=== PATIENT | female | born 1945 | race Caucasian/White ===

== ENCOUNTER → 2017-07-14 | Outpatient (CLI) | payer MEDICARE, BC ==
[2015-06-01 07:37] VITALS: BP 142/51
[~2017-07-14] MED LIST: HYDR-971 PO
--- NOTE | 2017-07-14 15:17 | RAD ---
DATE: 07/14/2017 EXAM: MAMMO JAVIER SCREENING BILATERAL HISTORY: Routine screening COMPARISON: 07/09/2016 This study was interpreted with the benefit of Computerized Aided Detection (CAD). The breast parenchyma is heterogeneously dense, which could reduce sensitivity of mammography. Breast parenchyma level C. FINDINGS: 2-D and 3-D tomosynthesis imaging was performed in CC and MLO projections. There are coarse benign type calcifications in the right breast. No new or enlarging breast densities are seen. No suspicious microcalcifications have developed. IMPRESSION: Stable mammograms without evidence of malignancy. BI-RADS CATEGORY: 2 BENIGN FINDING(S) RECOMMENDED FOLLOW-UP: 12M 12 MONTH FOLLOW-UP PQRS compliance statement: Patient information was entered into a reminder system with a target due date for the next mammogram. Mammography is a sensitive method for finding small breast cancers, but it does not detect them all and is not a substitute for careful clinical examination. A negative mammogram does not negate a clinically suspicious finding and should not result in delay in biopsying a clinically suspicious abnormality. "Our facility is accredited by the [employer] Mammography [employer]."
== END | disposition home or self-care (01) ==
LOC: MAMMO 10:11
PROVIDERS: ATTEND Specialist
DX: Z12.31 Encounter for screening mammogram for malignant neoplasm of breast (principal)
CPT/HCPCS: 77063; 77067

== ENCOUNTER → 2018-04-04 | Outpatient (CLI) | payer MEDICARE, BC ==
[2015-06-01 07:37] VITALS: BP 142/51
[~2018-04-04] MED LIST changes: +HYDR-3165 PO; -HYDR-971 PO
--- NOTE | 2018-04-04 17:09 | RAD ---
Bone densitometry scan, 04/04/2018: HISTORY: Follow-up osteopenia The lumbar spine and right hip were examined utilizing a DEXA technique. The bone mineral density of the lumbar spine as measured from the L1-L4 levels is 0.92 g/sq cm. This yields a T score of -2.1 compatible with osteopenia. This has worsened since the 03/24/2016 exam at which time the T score was -1.6. The total T score at the right hip is -1.5 also compatible with osteopenia. This compares to a value of -1.4 on the previous study. IMPRESSION: Worsening osteopenia as described above. Electronically signed by: Domingo Lopez MD (04/04/2018 5:05 PM) [facility]
== END | disposition home or self-care (01) ==
LOC: DXRAD 09:56
PROVIDERS: ATTEND Specialist
DX: M85.89 Other specified disorders of bone density and structure, multiple sites (principal)
CPT/HCPCS: 77080

== ENCOUNTER → 2018-07-25 | Outpatient (CLI) | payer MEDICARE, BC ==
[2015-06-01 07:37] VITALS: BP 142/51
[~2018-07-25] MED LIST changes: +ACET325T9 PO; +BIFI4CAP PO; +CALC-157 PO; +CHOL100013 PO; +DIPH50CA PO; +DOCU100C28 PO; +SIMV20TA3 PO; +VIT1TABL34 PO; +VITA1CAP PO
--- NOTE | 2018-07-25 11:12 | RAD ---
DATE: 07/25/2018 EXAM: MAMMO JAVIER SCREENING BILATERAL HISTORY: Routine screening COMPARISON: 07/14/2017 This study was interpreted with the benefit of Computerized Aided Detection (CAD). Breast Density: HETERO The breast parenchyma is heterogenously dense, which could reduce sensitivity of mammography. Breast parenchyma level C. FINDINGS: 2-D and 3-D tomosynthesis imaging was performed in CC and MLO projections. No new or enlarging breast densities are seen. Benign type calcifications are again noted. No suspicious microcalcifications have developed. IMPRESSION: Stable mammograms without evidence of malignancy. BI-RADS CATEGORY: 2 BENIGN FINDING(S) RECOMMENDED FOLLOW-UP: 12M 12 MONTH FOLLOW-UP PQRS compliance statement: Patient information was entered into a reminder system with a target due date for the next mammogram. Mammography is a sensitive method for finding small breast cancers, but it does not detect them all and is not a substitute for careful clinical examination. A negative mammogram does not negate a clinically suspicious finding and should not result in delay in biopsying a clinically suspicious abnormality. "Our facility is accredited by the [employer] Mammography [employer]."
== END | disposition home or self-care (01) ==
LOC: MAMMO 10:19
PROVIDERS: ATTEND Specialist
DX: Z12.31 Encounter for screening mammogram for malignant neoplasm of breast (principal)
CPT/HCPCS: 77063; 77067

== ENCOUNTER 2018-08-07 11:28 | Inpatient (IN) | payer MEDICARE, BC ==
[~2018-08-07] VITALS: Ht 154.9 cm; Wt 49.4 kg
[~2018-08-07 11:28] MED LIST changes: -ACET325T9 PO; -BIFI4CAP PO; -CALC-157 PO; -CHOL100013 PO; -DIPH50CA PO; -DOCU100C28 PO; -SIMV20TA3 PO; -VIT1TABL34 PO; -VITA1CAP PO
[2018-08-07] MEDS ORDERED: ASPIRIN 81 MG TAB.CHEW PO ONE (12:00)
--- NOTE | 2018-08-07 12:09 | PHYS DOC ---
Past History Past Medical History: High Cholesterol, Other Past Surgical History: Hysterectomy Smoking: Non-smoker Alcohol Use: None Drug Use: None Adult General Chief Complaint Chief Complaint: DIZZY/LIGHT HEADED HPI HPI Patient is a 73-year-old female who became weak approximately 30 minutes into her usual 40 minute exercise program. She took her blood pressure after this program and noted that her systolic was in the 70s on serial testing. She also noted that she was covered in sweat which is different than her usual because she normally does not sweat much at all during these workouts. She denies any chest pain or palpitations. She noted being very lightheaded. She saw her primary care physician this morning who noted that her blood pressure was in the 90s on arrival and it improved to the 100s to 1 teens prior to discharge to come to the emergency department. Patient noted during this time that she had an area of black vision in the bottom right quadrant of her right eye visual field that has since resolved. She also noted that she was having difficulty getting words out. Her primary care physician not noticed any change in speech pattern however her did note that she was slower to get words out but there was no slurring of speech. Patient did not have any episode of arm or leg weakness. The speech difficulties have also resulted. Patient's past medical history is only significant for hyperlipidemia, she reports taking the lowest dose of simvastatin. She relates that she had a similar episode within the past month while getting physical therapy for back issues.[] Review of Systems Review of Systems Constitutional: Denies fever or chills [] Eyes: Denies change in visual acuity, redness, or eye pain [] HENT: Denies nasal congestion or sore throat [] Respiratory: Denies cough or shortness of breath [] Cardiovascular: No chest pain or palpitations[] GI: Denies abdominal pain, nausea, vomiting, bloody stools or diarrhea [] : Denies dysuria or hematuria [] Musculoskeletal: Denies back pain or joint pain [] Integument: Denies rash or skin lesions [] Neurologic: Denies headache, focal weakness or sensory changes [] Endocrine: Denies polyuria or polydipsia [] All other systems were reviewed and found to be within normal limits, except as documented in this note. Current Medications Current Medications Current Medications Medications (Trade) Dose Ordered Sig/Mingo Start Time Stop Time Status Last Admin Dose Admin Aspirin (Children'S Aspirin) 324 mg 1X ONCE 08/07/18 12:00 08/07/18 12:01 UNV Allergies Allergies Allergies Coded Allergies Type Severity Reaction Last Updated Verified No Known Drug Allergies 06/01/15 No Physical Exam Physical Exam Constitutional: Well developed, well nourished, no acute distress, non-toxic appearance. [] HENT: Normocephalic, atraumatic, bilateral external ears normal, oropharynx moist, no oral exudates, nose normal. [] Eyes: PERRLA, EOMI, conjunctiva normal, no discharge. [] Neck: Normal range of motion, no tenderness, supple, no stridor. [] Cardiovascular:Heart rate regular rhythm, no murmur [] Lungs & Thorax: Bilateral breath sounds clear to auscultation [] Abdomen: Bowel sounds normal, soft, no tenderness, no masses, no pulsatile masses. [] Skin: Warm, dry, no erythema, no rash. [] Back: No tenderness, no CVA tenderness. [] Extremities: No tenderness, no cyanosis, no clubbing, ROM intact, no edema. [] Neurologic: Alert and oriented X 3, normal motor function, normal sensory function, no focal deficits noted. [] Psychologic: Affect normal, judgement normal, mood normal. [] Current Patient Data Vital Signs Vital Signs Date Time Temp Pulse Resp B/P (MAP) Pulse Ox O2 Delivery O2 Flow Rate FiO2 08/07/18 11:40 98.4 67 22 100 Room Air EKG EKG EKG shows a sinus rhythm at 77 bpm, left or axis at -3, QTC of 407 ms, no ST elevations. Interpreted by me at 1233. Compared with EKG of 06/01/2015, no acute changes are present.[] Radiology/Procedures Radiology/Procedures CT scan of the head without contrast 08/07/2018 Clinical History: Dizziness. Difficulty speaking. Technique: Unenhanced, contiguous, 5 mm axial sections were obtained through the head. One or more of the following individualized dose reduction techniques were utilized for this study: 1. Automated exposure control. 2. Adjustment of the mA and/or kV according to patient size. 3. Use of iterative reconstruction technique. Findings: No previous imaging studies are available for comparison. There is generalized parenchymal atrophy. Areas of decreased attenuation are seen within the periventricular and subcortical white matter of both cerebral hemispheres consistent with areas of small vessel ischemic disease. No acute parenchymal abnormality is seen. No extra-axial fluid collection is noted. No skull fracture is seen. Impression: No acute intracranial abnormality is seen. PORTABLE CHEST 1V History: Dizziness Comparison: 06/16/2015 Findings: Single view of the chest is submitted. There is no infiltrate, pneumothorax, or effusion. The pericardial cardiac silhouette is within normal limits in size. Impression: 1. There is no evidence of acute cardiopulmonary disease.[] Course & Med Decision Making Course & Med Decision Making Pertinent Labs and Imaging studies reviewed. (See chart for details) ED course: Patient arrived, was placed in bed, and tolerated exam well. She was given aspirin due to concern for cardiac etiology. Her blood pressure has remained stable while in the emergency department. She was transported to and from radiology without any complications. After the return of laboratory and imaging studies, these were discussed with the patient who voiced understanding. Consultation was made with hospitalist service for admission and further evaluation. Medical decision making: Believe her neurologic symptoms were due to the relative low flow state given her low blood pressure being reported. There is no evidence of a stroke syndrome. Concerned about the etiology of this hypotension along with the diaphoresis, further differential includes but is not limited to a dysrhythmia versus of fluid and volume changes given her exercise. There is no evidence of a STEMI, there is been no dysrhythmia while in the emergency department, no evidence of an infection, and no continued hypotension. She is being admitted for further evaluation and treatment.[] Dragon Disclaimer Dragon Disclaimer This electronic medical record was generated, in whole or in part, using a voice recognition dictation system. Departure Departure: Impression: Primary Impression: Hypotension Additional Impression: Weakness Disposition: 09 ADMITTED INPATIENT Admitting Physician: Yuridia Duff Condition: IMPROVED Referrals: MINDI WATSON MD (PCP) Problem Qualifiers Primary Impression: Hypotension Hypotension type: unspecified hypotension type Qualified Codes: I95.9 - Hypotension, unspecified KATELYNFARZAD PALMER Aug 07, 2018 12:09
--- NOTE | 2018-08-07 12:45 | RAD ---
PORTABLE CHEST 1V History: Dizziness Comparison: 06/16/2015 Findings: Single view of the chest is submitted. There is no infiltrate, pneumothorax, or effusion. The pericardial cardiac silhouette is within normal limits in size. Impression: 1. There is no evidence of acute cardiopulmonary disease. Electronically signed by: Horace Villanueva MD (08/07/2018 12:43 PM) [id number]
--- NOTE | 2018-08-07 12:49 | RAD ---
CT scan of the head without contrast 08/07/2018 Clinical History: Dizziness. Difficulty speaking. Technique: Unenhanced, contiguous, 5 mm axial sections were obtained through the head. One or more of the following individualized dose reduction techniques were utilized for this study: 1. Automated exposure control. 2. Adjustment of the mA and/or kV according to patient size. 3. Use of iterative reconstruction technique. Findings: No previous imaging studies are available for comparison. There is generalized parenchymal atrophy. Areas of decreased attenuation are seen within the periventricular and subcortical white matter of both cerebral hemispheres consistent with areas of small vessel ischemic disease. No acute parenchymal abnormality is seen. No extra-axial fluid collection is noted. No skull fracture is seen. Impression: No acute intracranial abnormality is seen. Electronically signed by: Winston Crocktet MD (08/07/2018 12:47 PM) [id number]
[2018-08-07 12:56] LABS: BASO % 0 % (0-3); EOS % 0 % (0-3); HEMATOCRIT 43.4 % (36.0-47.0); HEMOGLOBIN 14.3 g/dL (12.0-15.5); LYMPH # 0.7 x10^3/uL (1.0-4.8); LYMPH % 7 % (24-48); MEAN CORPUSCULAR HEMOGLOBIN 30 pg (25-35); MEAN CORPUSCULAR HGB CONC 33 g/dL (31-37); MEAN CORPUSCULAR VOLUME 91 fL (79-100); MONO # 0.6 x10^3/uL (0.0-1.1); MONO % 6 % (0-9); NEUT # 8.3 x10^3uL (1.8-7.7); NEUT % 86 % (31-73); PLATELET COUNT 232 x10^3/uL (140-400); RED BLOOD COUNT 4.77 x10^6/uL (3.50-5.40); RED CELL DISTRIBUTION WIDTH 12.6 % (11.5-14.5); WHITE BLOOD COUNT 9.6 x10^3/uL (4.0-11.0)
[2018-08-07 13:14] LABS: ALBUMIN 3.9 g/dL (3.4-5.0); ALBUMIN/GLOBULIN RATIO 1.1 (1.0-1.7); CALCIUM 9.2 mg/dL (8.5-10.1); CREATININE 0.9 mg/dL (0.6-1.0); GFR 61.2; MAGNESIUM 2.1 mg/dL (1.8-2.4); POTASSIUM 4.5 mmol/L (3.5-5.1); TOTAL BILIRUBIN 0.6 mg/dL (0.2-1.0); TOTAL PROTEIN 7.3 g/dL (6.4-8.2)
[2018-08-07 13:41] LABS: BILIRUBIN,URINE NEG (NEG); CLARITY,URINE HAZY; COLOR,URINE YELLOW; GLUCOSE,URINE NEG (NEG)
[2018-08-07 13:42] LABS: BACTERIA,URINE FEW /HPF (0-FEW); HYALINE CASTS, URINE FEW /HPF; NITRITE,URINE NEG (NEG); SQUAMOUS EPITHELIAL CELL,UR OCC /LPF; UROBILINOGEN,URINE 0.2 mg/dL (0.2 mg/dL)
[2018-08-07] MEDS ORDERED: IV NORMAL SALINE 500ML 500 ML IV ONE (14:00)
[2018-08-07] MEDS: IV NORMAL SALINE 1,000ML 1,000 ML IV SCH (14:07)
[2018-08-07] MEDS ORDERED: ACETAMINOPHEN 325 MG TABLET PO PRN (14:15)
[2018-08-07] MEDS ORDERED: ONDANSETRON PF 4 MG/2 ML VIAL. IV PRN (14:15)
--- NOTE | 2018-08-07 18:03 | EKG ---
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
[2018-08-07 18:04] VITALS: BP 161/81
--- NOTE | 2018-08-07 18:33 | NUR ---
NSG NOTE; ADMISSION ADMIT TO ROOM 123 FROM ED AT 1745 VIA CART ACCOMP BY EMS PERSONNEL C/O DIZZINESS/WEAKNESS/DIAPHORESIS DURING AEROBIC EXERCISE WITH BP 70s/40s. PT'S DR WATSON TOLD HER TO COME TO THE ED. NO CURRENT S/S PT TO CALL FOR ASSIST W/ AMB TO [facility]
--- NOTE | 2018-08-07 18:37 | NUR ---
NSG NOTE; DR LOERA CONSULT CALLED TO ANSWERING SERVICE AT 1840
[2018-08-07] MEDS ORDERED: SIMV20TA3 PO (18:40)
[2018-08-07] MEDS ORDERED: SIMVASTATIN 20 MG TABLET PO SCH (21:00)
[2018-08-07] MEDS: SIMVASTATIN 20 MG TABLET PO SCH (21:31)
[2018-08-07 23:15] VITALS: BP 147/64
[2018-08-08] VITALS (7 sets, daily range): BP systolic 123–189; BP diastolic 64–78
[2018-08-08] MEDS: IV NORMAL SALINE 1,000ML 1,000 ML IV SCH ×2 (01:06→06:01)
[2018-08-08 05:59] LABS: BASO % 1 % (0-3); EOS # 0.1 x10^3/uL (0.0-0.7); EOS % 2 % (0-3); HEMATOCRIT 39.6 % (36.0-47.0); HEMOGLOBIN 13.1 g/dL (12.0-15.5); LYMPH # 1.5 x10^3/uL (1.0-4.8); LYMPH % 27 % (24-48); MEAN CORPUSCULAR HEMOGLOBIN 30 pg (25-35); MEAN CORPUSCULAR HGB CONC 33 g/dL (31-37); MEAN CORPUSCULAR VOLUME 91 fL (79-100); MONO # 0.5 x10^3/uL (0.0-1.1); MONO % 8 % (0-9); NEUT # 3.6 x10^3uL (1.8-7.7); NEUT % 62 % (31-73); PLATELET COUNT 220 x10^3/uL (140-400); RED BLOOD COUNT 4.33 x10^6/uL (3.50-5.40); RED CELL DISTRIBUTION WIDTH 12.9 % (11.5-14.5); WHITE BLOOD COUNT 5.7 x10^3/uL (4.0-11.0)
[2018-08-08 06:10] LABS: ALBUMIN 3.4 g/dL (3.4-5.0); CALCIUM 8.6 mg/dL (8.5-10.1); CREATININE 0.7 mg/dL (0.6-1.0); GFR 81.8; POTASSIUM 4.3 mmol/L (3.5-5.1); TOTAL BILIRUBIN 0.8 mg/dL (0.2-1.0); TOTAL PROTEIN 6.7 g/dL (6.4-8.2)
--- NOTE | 2018-08-08 08:57 | PDOC2 ---
CONSULT Date of Admission DATE: 08/08/18 TIME: 08:54 Reason for Consult: hypotension, presyncope Problem List Problems Medical Problems: (1) Hypotension Status: Acute (2) Weakness Status: Acute History of Present Illness Ms Main is a very active 73 year old female with history of hyperlipidemia and IBS. She does step aerobics every other day for years and strengthening exercises on alternate days. She reports yesterday she was finishing up her step aerobic class and doing core strengthening exercise when she began to feel lightheaded. she states she had dark spots in vision, significant diaphoresis and felt she might pass out. She lay down for a few minutes but continued to feel bad so took her blood pressure and found her systolic pressure to be in the 70s. She called her who took her to the PCP office. while in the PCP office her pressure gradually improved to systolic >100 but was admitted for evaluation and mgmt. She reports she has had one similar episode though not as severe and also during activity. She denies any syncope. She denies chest pain, dyspnea or palpitations. She denies congestive symptoms. she was noted to be mildly dehydrated on admission and given IVF. she reports feeling fine today. She does report profound fatigue and weakness during the episode yesterday and a feeling of understanding what she wanted to say but inability to articulate it. She denies any weakness one side or the other, double vision or other signs of stroke. Cardiovascular: hyperipidemia Pulmonary: No pertinent hx GI: GERD, Irritable bowel disease Heme/Onc: No pertinent hx Hepatobiliary: No pertinent hx Psych: No pertinent hx Musculoskeletal: No pertinent hx Rheumatologic: No pertinent hx Infectious disease: No pertinent hx ENT: No pertinent hx Renal/: No pertinent hx Endocrine: No pertinent hx Dermatology: No pertinent hx Past Surgical History: Appendectomy, Hysterectomy Family History cancer and hypertension, no coronary disease Social History non smoker, no illicit drugs, no significant ETOH Current Medications Current Medications Aspirin (Children'S Aspirin) 324 mg 1X ONCE PO Last administered on 08/07/18at 12:35; Start 08/07/18 at 12:00; Stop 08/07/18 at 12:09; Status DC Sodium Chloride 500 ml @ 0 mls/hr 1X ONCE IV Last administered on 08/07/18at 14: 03; Start 08/07/18 at 14:00; Stop 08/07/18 at 14:01; Status DC Ondansetron HCl (Zofran) 4 mg PRN Q4HRS PRN IV NAUSEA/VOMITING; Start 08/07/18 at 14:15; Stop 08/08/18 at 14:14 Sodium Chloride 1,000 ml @ 125 mls/hr Q8H IV Last administered on 08/08/18at 01: 06; Start 08/07/18 at 14:01; Stop 08/08/18 at 14:00 Acetaminophen (Tylenol) 650 mg PRN Q4HRS PRN PO FEVER; Start 08/07/18 at 14:15; Stop 08/08/18 at 14:14 Simvastatin (Zocor) 40 mg QHS PO ; Start 08/07/18 at 21:00; Stop 08/07/18 at 21:27 ; Status DC Simvastatin (Zocor) 20 mg QHS PO Last administered on 08/07/18at 21:31; Start 08/07/18 at 21:30 Active Scripts Active Reported Simvastatin 20 Mg Tablet 1 Tab PO QHS Allergies: Coded Allergies: hydrocodone (Verified Allergy, Unknown, 08/07/18) Review of System as per HPI General: YES: Fatigue, Malaise HEENT: YES: Visual Changes Cardiovascular: yes: Lt Headedness Gastrointestinal: YES: Nausea, Constipation Neurological: YES: Dizziness, Visual Changes, Weakness General: Alert, Oriented X3, Cooperative, No acute distress HEENT: Atraumatic, EOMI, Mucous membr. moist/pink Lungs: Clear to auscultation, Normal air movement Heart: Normal S1, Normal S2, Other (no obvious murmurs, no gallops clicks or rubs) Abdomen: Normal bowel sounds, Soft, No tenderness Extremities: No cyanosis, No edema, Normal pulses Skin: No rashes, No breakdown Neuro: Normal speech, Strength at 5/5 X4 ext, Cranial nerves 3-12 NL Psych/Mental Status: Mental status NL, Mood NL VITALS Vital Signs Date Time Temp Pulse Resp B/P (MAP) Pulse Ox O2 Delivery O2 Flow Rate FiO2 08/08/18 08:36 Room Air 08/08/18 05:39 98.0 72 18 123/69 (87) 99 Labs Laboratory Tests Test 08/07/18 12:29 08/07/18 13:10 08/07/18 17:30 08/07/18 20:00 White Blood Count 9.6 x10^3/uL (4.0-11.0) Red Blood Count 4.77 x10^6/uL (3.50-5.40) Hemoglobin 14.3 g/dL (12.0-15.5) Hematocrit 43.4 % (36.0-47.0) Mean Corpuscular Volume 91 fL (79-100) Mean Corpuscular Hemoglobin 30 pg (25-35) Mean Corpuscular Hemoglobin Concent 33 g/dL (31-37) Red Cell Distribution Width 12.6 % (11.5-14.5) Platelet Count 232 x10^3/uL (140-400) Neutrophils (%) (Auto) 86 % (31-73) Lymphocytes (%) (Auto) 7 % (24-48) Monocytes (%) (Auto) 6 % (0-9) Eosinophils (%) (Auto) 0 % (0-3) Basophils (%) (Auto) 0 % (0-3) Neutrophils # (Auto) 8.3 x10^3uL (1.8-7.7) Lymphocytes # (Auto) 0.7 x10^3/uL (1.0-4.8) Monocytes # (Auto) 0.6 x10^3/uL (0.0-1.1) Eosinophils # (Auto) 0.0 x10^3/uL (0.0-0.7) Basophils # (Auto) 0.0 x10^3/uL (0.0-0.2) Prothrombin Time 9.4 SEC (9.4-11.4) Prothromb Time International Ratio 0.9 (0.9-1.1) Sodium Level 144 mmol/L (136-145) Potassium Level 4.5 mmol/L (3.5-5.1) Chloride Level 107 mmol/L (98-107) Carbon Dioxide Level 32 mmol/L (21-32) Anion Gap 5 (6-14) Blood Urea Nitrogen 27 mg/dL (7-20) Creatinine 0.9 mg/dL (0.6-1.0) Estimated GFR (Cockcroft-Gault) 61.2 BUN/Creatinine Ratio 30 (6-20) Glucose Level 95 mg/dL (70-99) Calcium Level 9.2 mg/dL (8.5-10.1) Magnesium Level 2.1 mg/dL (1.8-2.4) Total Bilirubin 0.6 mg/dL (0.2-1.0) Aspartate Amino Transf (AST/SGOT) 24 U/L (15-37) Alanine Aminotransferase (ALT/SGPT) 24 U/L (14-59) Alkaline Phosphatase 92 U/L (46-116) Troponin I Quantitative < 0.017 ng/mL (0-0.055) < 0.017 ng/mL (0-0.055) < 0.017 ng/mL (0-0.055) HC-Lrj-Y-Type Natriuretic Peptide 124 pg/mL (0-124) Total Protein 7.3 g/dL (6.4-8.2) Albumin 3.9 g/dL (3.4-5.0) Albumin/Globulin Ratio 1.1 (1.0-1.7) Urine Collection Type Unknown Urine Color Yellow Urine Clarity Hazy Urine pH 6.5 Urine Specific [place] 1.020 Urine Protein Trace (NEG-TRACE) Urine Glucose (UA) Neg mg/dL (NEG) Urine Ketones (Stick) Neg mg/dL (NEG) Urine Blood Neg (NEG) Urine Nitrite Neg (NEG) Urine Bilirubin Neg (NEG) Urine Urobilinogen Dipstick 0.2 mg/dL (0.2 mg/dL) Urine Leukocyte Esterase Neg (NEG) Urine RBC 1-2 /HPF (0-2) Urine WBC 1-4 /HPF (0-4) Urine Squamous Epithelial Cells Occ /LPF Urine Bacteria Few /HPF (0-FEW) Urine Hyaline Casts Few /HPF Urine Mucus Slight /LPF Test 08/08/18 05:47 White Blood Count 5.7 x10^3/uL (4.0-11.0) Red Blood Count 4.33 x10^6/uL (3.50-5.40) Hemoglobin 13.1 g/dL (12.0-15.5) Hematocrit 39.6 % (36.0-47.0) Mean Corpuscular Volume 91 fL (79-100) Mean Corpuscular Hemoglobin 30 pg (25-35) Mean Corpuscular Hemoglobin Concent 33 g/dL (31-37) Red Cell Distribution Width 12.9 % (11.5-14.5) Platelet Count 220 x10^3/uL (140-400) Neutrophils (%) (Auto) 62 % (31-73) Lymphocytes (%) (Auto) 27 % (24-48) Monocytes (%) (Auto) 8 % (0-9) Eosinophils (%) (Auto) 2 % (0-3) Basophils (%) (Auto) 1 % (0-3) Neutrophils # (Auto) 3.6 x10^3uL (1.8-7.7) Lymphocytes # (Auto) 1.5 x10^3/uL (1.0-4.8) Monocytes # (Auto) 0.5 x10^3/uL (0.0-1.1) Eosinophils # (Auto) 0.1 x10^3/uL (0.0-0.7) Basophils # (Auto) 0.0 x10^3/uL (0.0-0.2) Sodium Level 143 mmol/L (136-145) Potassium Level 4.3 mmol/L (3.5-5.1) Chloride Level 109 mmol/L (98-107) Carbon Dioxide Level 28 mmol/L (21-32) Anion Gap 6 (6-14) Blood Urea Nitrogen 16 mg/dL (7-20) Creatinine 0.7 mg/dL (0.6-1.0) Estimated GFR (Cockcroft-Gault) 81.8 BUN/Creatinine Ratio 23 (6-20) Glucose Level 87 mg/dL (70-99) Calcium Level 8.6 mg/dL (8.5-10.1) Total Bilirubin 0.8 mg/dL (0.2-1.0) Aspartate Amino Transf (AST/SGOT) 27 U/L (15-37) Alanine Aminotransferase (ALT/SGPT) 20 U/L (14-59) Alkaline Phosphatase 78 U/L (46-116) Total Protein 6.7 g/dL (6.4-8.2) Albumin 3.4 g/dL (3.4-5.0) Albumin/Globulin Ratio 1.0 (1.0-1.7) Images Head CT - Impression: No acute intracranial abnormality is seen. CXR - 1. There is no evidence of acute cardiopulmonary disease. EKG - sinus rhythm, leftward axis, no acute ischemic changes Assessment/Plan 1. Near syncope in the setting of prerenal azotemia and hypotension - renal function normalized, no new symptoms, check orthostatic pressures. Suggest JAN hose when out of bed, check echo and if no significant abn, home with MCT and schedule for outpatient MPI. 2. Hypotension - resolved with IVF. check orthostatics 3. pre renal azotemia - resolved with IVF 4. dyslipidemia - check lipids, continue home medication Will check echo for any significant abn. Check orthostatics and if normal plan for home with MCT and plan for outpatient MPI. FEMI MON TRADEMARK AFFIXER Aug 08, 2018 08:57
--- NOTE | 2018-08-08 11:28 | CARD ---
MR#: [id number] Date of Study: 08/08/2018 Ordering Physician: FEMI MON, Referring Physician: KEE MATTA Tech: Iona Arauz [facility] APPROVED REPORT EXAM: Two-dimensional and M-mode echocardiogram with Doppler and color Doppler. Other Information Quality : AverageHR: 70bpm Rhythm : NSR INDICATION Hypotension 2D DIMENSIONS Left Atrium(2D)3.4 (1.6-4.0cm)IVSd1.1 (0.7-1.1cm) Aortic Root(2D)2.6 (2.0-3.7cm)LVDd3.8 (3.9-5.9cm) LVOT Diameter2.0 (1.8-2.4cm)PWd0.9 (0.7-1.1cm) LVDs2.0 (2.5-4.0cm)FS (%) 47.2 % SV49.6 mlLVEF(%)79.3 (>50%) Aortic Valve AoV Peak Maldonado.145.6cm/sAoV VTI30.9cm AO Peak GR.8.5mmHgLVOT Peak Maldonado.97.5cm/s LVOT VTI 21.13cmAO Mean GR.4mmHg CHARI (VMAX)2.35vg8LLQ (VTI)2.10cm2 Mitral Valve MV E Fjbkxuat19.9cm/sMV DECEL HSPG708au MV A Mvurwgez042.7cm/sE/A Ratio0.7 MV A Zdxxvqks46ux Pulmonary Valve PV Peak Fyohpclt34.7cm/sPV Peak Grad.4mmHg Tricuspid Valve TR P. Dhuffrln296hw/sRAP NLDAQVEV4dyNq TR Peak Gr.36kqXlNVPW32cbCz LEFT VENTRICLE The left ventricle is normal size. Proximal septal thickening is noted. The left ventricle systolic f unction is normal. The Ejection Fraction is 70%. There is normal LV segmental wall motion. Transmitra l Doppler flow pattern is Grade I-abnormal relaxation pattern. RIGHT VENTRICLE The right ventricle is normal size. There is normal right ventricular wall thickness. The right ventr icular systolic function is normal. ATRIA The left atrium size is normal. The right atrium size is normal. The interatrial septum is intact wit h no evidence for an atrial septal defect or patent foramen ovale as noted on 2-D or Doppler imaging. AORTIC VALVE The aortic valve is probably trileaflet. Doppler and Color Flow revealed no significant aortic regurg itation. There is no significant aortic valvular stenosis. MITRAL VALVE The mitral valve is normal in structure and function. There is no evidence of mitral valve prolapse. There is no mitral valve stenosis. Doppler and Color-flow revealed trace mitral regurgitation. TRICUSPID VALVE The tricuspid valve is normal in structure and function. Doppler and Color Flow revealed trace tricus pid regurgitation. The PA pressure was estimated at 21 mmHg. There is no tricuspid valve prolapse or vegetation. There is no tricuspid valve stenosis. PULMONIC VALVE The pulmonic valve is not well visualized. Doppler and Color Flow revealed no pulmonic valvular regur gitation. There is no pulmonic valvular stenosis. GREAT VESSELS The aortic root is normal in size. The ascending aorta is normal in size. The IVC is normal in size a nd collapses >50% with inspiration. PERICARDIAL EFFUSION There is no evidence of significant pericardial effusion. Critical Notification Critical Value: No <Conclusion> The left ventricle systolic function is normal. The Ejection Fraction is 70%. There is normal LV segmental wall motion. Transmitral Doppler flow pattern is Grade I-abnormal relaxation pattern. Trace mitral regurgitation. Trace tricuspid regurgitation. The PA pressure was estimated at 21 mmHg. There is no evidence of significant pericardial effusion. Signed by : Delio Smart, Electronically Approved : 08/08/2018 11:28:06
--- NOTE | 2018-08-08 14:09 | HP ---
ADMIT DATE: 08/07/2018 HISTORY OF PRESENT ILLNESS: The patient is a 73-year-old female patient who came to the Emergency Room as she developed weakness approximately 30 minutes into her usual 40 minutes exercise program. She took her blood pressure after this program and noted that her blood pressure was in the 70s with serial testing. She also notes that she was covered in sweat, which is different than her usual because she normally does not sweat much at all during these exercises; however, she denied any chest pain, denied any palpitation. She noted that being very lightheaded. She saw her primary care physician who noted that her blood pressure was in the 90s on arrival. It has improved to 100-110s prior to discharge, come to the Emergency Room. She noted during this time that she had an area of black vision in the bottom right quadrant of her right eye visual field, it has since resolved. She also noted that she is having difficulty getting words out. Her primary care physician did not notice any change in this patient's speech pattern; however, her did note that she was slower to get words out, but there was no slurring of speech. She denied any weakness in her arms or legs. The speech difficulties have also resolved. She was evaluated in the Emergency Room and apparently has had a CT scan of the head, which showed no intracranial abnormalities seen. Her first set of cardiac enzyme was less than 0.017. The patient was admitted to do 2 more sets of cardiac enzyme and to consult the cardiology and perhaps also neurologist. PAST MEDICAL HISTORY: Significant for hyperlipidemia, gastroesophageal reflux disease, irritable bowel syndrome. PAST SURGICAL HISTORY: Significant for appendectomy and hysterectomy. FAMILY HISTORY: Positive for cancer and hypertension. SOCIAL HISTORY: She is . Does not smoke, drink alcohol, or use recreational drugs. ALLERGIES: She is allergic to HYDROCODONE. MEDICATIONS: She is currently on following medications: She is on simvastatin 20 mg tablet at bedtime. REVIEW OF SYSTEMS: As per history of present illness. PHYSICAL EXAMINATION: GENERAL: On arrival to the hospital yesterday in the Emergency Room, she looked well and was clearly in no apparent respiratory distress. No pallor, jaundice, cyanosis, or thyromegaly. No jugular venous distension. No limb edema. VITAL SIGNS: Her heart rate was 67, blood pressure 132/73, temperature was 98.4, respiratory rate was 22, and oxygen saturation was 100% on room air. HEAD, EYES, EARS, NOSE, AND THROAT: Showed normocephalic, atraumatic. NECK: Supple. HEART: Showed normal first and second heart sounds. No gallop, rub, or murmur. CHEST: Clear to auscultation. No crepitation or rhonchi. ABDOMEN: Distended, soft, nontender. NEUROLOGIC: She was awake, alert, responding appropriately. All cranial nerves intact. She moves extremities without difficulty. She ambulates without assistance or assistive devices. LABORATORY DATA: Showed a white cell count of 9600, hemoglobin 14, hematocrit 43, MCV 91, and a platelet count 232,000 with normal manual differential. Her chemistry showed a serum sodium 144, potassium 4.5, chloride 107, bicarbonate 32, anion gap of 5, BUN 27, creatinine 0.9, estimated GFR was 61 mL per minute. Her glucose was 95. Her calcium was 9.2, magnesium 2.1. Total bilirubin, AST, ALT, alkaline phosphatase were normal. Total protein was 7.3, albumin 3.9. Her first set of troponin was less than 0.017. Her prothrombin time was 9.4, INR was 0.9. Her urinalysis showed the urine was yellow, hazy with a pH of 6.5, specific gravity of 1.010. There was a trace of protein. The urine was negative for glucose, ketones, blood, nitrite and leukocyte esterase. There was 1-2 rbc's, 1-4 wbc's, and very occasionally squamous epithelial cells, but very few bacteria. Her chest x-ray showed that there is no infiltrate, pneumothorax, or effusion. The pericardial cardiac silhouette is within normal limits in size and her CT scan of the head showed there is generalized parenchymal atrophy, areas of decreased attenuation are seen within the periventricular subcortical white matter of both cerebral hemispheres, consistent with small vessel ischemic disease, no acute parenchymal abnormality seen. No extraaxial fluid collection is noted. No skull fracture is seen. IMPRESSION AND PLAN: In summary, this is a 73-year-old female patient who basically developed an episode of hypotension while exercising her usual and daily exercises and she felt dizzy and became diaphoretic, something she does not normally experience in her this kind of exercises. She went to her doctor where her initial blood pressure measurement was 90s and has improved slowly before she came to the Emergency Room. The patient was admitted and initial investigation were unremarkable, particularly her blood pressure has normalized and her first set of cardiac enzyme was negative. Chest x-ray and CT scan were all unremarkable. We will admit the patient and do 2 more sets of cardiac enzyme and consult the polisher and sander and decide on further management accordingly. KEE MATTA MD DR: EZEQUIEL/mikayla JOB#: [id number] / [id number]
[2018-08-08] MEDS: amLODIPine BESYLATE 5 MG TABLET PO SCH (18:17)
[2018-08-08] MEDS ORDERED: CALC-157 PO (18:24)
[2018-08-08] MEDS ORDERED: VIT1TABL34 PO (18:24)
[2018-08-08] MEDS ORDERED: DIPH50CA PO (18:24)
[2018-08-08] MEDS ORDERED: DOCU100C28 PO (18:24)
[2018-08-08] MEDS ORDERED: CHOL100013 PO (18:24)
[2018-08-08] MEDS ORDERED: VITA1CAP PO (18:24)
[2018-08-08] MEDS ORDERED: ACET325T9 PO (18:24)
[2018-08-08] MEDS ORDERED: BIFI4CAP PO (18:24)
--- NOTE | 2018-08-08 20:07 | PN ---
DATE: 08/08/2018 SUBJECTIVE: The patient is resting, sitting up, and in no apparent respiratory distress. She was concerned as her blood pressure measurement today when checking her orthostatics was extremely high. No evidence of postural hypertension, but both blood pressures lying, sitting, and standing are 180 to 190 systolic. Denied again any chest pain, denied any shortness of breath. OBJECTIVE: GENERAL: On examining her, she looked well and was clearly in no apparent respiratory distress. No pallor, jaundice, cyanosis, or thyromegaly. No jugular venous distension. No limb edema. VITAL SIGNS: Her heart rate was 70, blood pressure was 132/69, temperature was 97.9, respiratory rate was 18 and oxygen saturation was 96%. The rest of the clinical examination was stable. Her intake was 2000, no output was recorded. LABORATORY DATA: Her lab work showed a serum sodium 143, potassium 4.3, chloride 109, bicarbonate 28, anion gap of 6, BUN 16, creatinine 0.7, estimated GFR was 82 mL per minute. Her glucose was 87, calcium was 8.6. Total bilirubin, AST, ALT, and alkaline phosphatase were normal. Her white cell count was 5700, hemoglobin 13, hematocrit 39, MCV 91, and platelet count 220,000. ASSESSMENT: 1. Near syncope. The patient was, at least when she arrived here, dehydrated, her BUN is disproportionately high to convert to creatinine. 2. Hypotension has resolved and prerenal azotemia has resolved. 3. Dyslipidemia for which she is actually on a statin. PLAN: I will arrange for her to have bilateral carotid Doppler ultrasounds and we will decide on further management accordingly. KEE MATTA MD DR: EZEQUIEL/mikayla JOB#: [id number] / [id number]
[2018-08-08] MEDS: SIMVASTATIN 20 MG TABLET PO SCH (20:51)
[2018-08-09 00:11] VITALS: BP 166/71
[2018-08-09 06:14] VITALS: BP 141/72
--- NOTE | 2018-08-09 08:59 | RAD ---
Exam : Carotid Duplex with Grayscale Ultrasound and Spectral and Color Doppler Analysis 08/09/2018 8:54 AM Clinical Indications: Near syncope Comparison study: None available PQRS Compliance Statement - Stenosis calculations for CT, MR and conventional angiography are based upon measurement of the distal ICA diameter in accordance with the NASCET methodology. Stenosis calculations for carotid ultrasound studies are derived from validated velocity criteria which are known to correlate with the NASCET methodology. Findings: The common, internal and external carotid arteries were examined by grayscale, color and spectral Doppler ultrasound. Very mild diffuse atherosclerotic vascular disease is seen, predominantly mild intimal thickening. No high-grade visual stenosis is seen on color Doppler imaging. The following are the velocities and ratios in the carotid arteries on both sides: RIGHT ICA PV: 101cm/sec RIGHT CCA PV: 60cm/sec RIGHT ICA ED: 31cm/sec RIGHT IC/CCPV: Less than 2 RIGHT VERTEBRAL: antegrade flow LEFT ICA PV: 91cm/sec LEFT CCA PV: 58cm/sec LEFT ICA ED: 28cm/sec LEFT IC/CCPV: Less than 2 LEFT VERTEBRAL: antegrade flow <50% ICA Stenosis: PSV < 125cm/s (EDV < 40cm/s; SVR < 2.0) 50-69% ICA Stenosis: PSV < 125-229cm/s (EDV 40-99cm/s; SVR 2.0-3.9) >70% ICA Stenosis: PSV > 230cm/s (EDV >100cm/s; SVR >4.0) Impression: Mild atherosclerotic vascular disease with less than 50 % stenosis of the bilateral internal carotid arteries by ultrasound criterion Electronically signed by: Jonathan Hancock MD (08/09/2018 8:56 AM) [id number]
[2018-08-09 11:08] VITALS: BP 160/74
[2018-08-09 13:08] VITALS: BP 165/84
[2018-08-09] MEDS: amLODIPine BESYLATE 5 MG TABLET PO SCH (13:08)
--- NOTE | 2018-08-09 14:58 | RAD ---
RENAL DUPLEX SONOGRAPHY Clinical indications: Malignant hypertension. Renal artery stenosis. Evaluation for renal scarring/atrophy. FINDINGS: The longitudinal and AP and transverse dimensions of the right kidney are 8.8 cm and 4.4 cm and 5.1 cm respectively. The longitudinal and AP and transverse dimensions of the left kidney are 10.4 cm and 4.8 cm and 4.3 cm respectively. There is mild left-sided hydronephrosis. No renal mass is seen on either side. The urinary bladder is mildly distended. No intraluminal echodensities or masses are seen. Duplex sonography including archer scale and color flow and spectral waveform analysis of the renal arteries and veins was performed. The peak systolic flow velocity of the right main renal artery is: Proximal: 77cm/sec Mid aspect: 139 cm/sec Distal: 113 cm/sec The peak systolic flow velocity of the left main renal artery is: Proximal: 94 cm/sec Midaspect: Not visualized due to overlying bowel gas. Distal: 81 cm/sec The peak systolic flow velocity of the abdominal aorta is 98 cm/sec. Therefore, the renal artery/aortic ratio on the right side is 1.4. Therefore, the renal artery/aortic ratio on the left side is 0.96. Color-Doppler flow is identified within the right main renal vein. Color-Doppler flow is identified within the left main renal vein. No abdominal aortic aneurysm is seen. The average resistive index of the right kidney is 0.75. The average resistive index of the left kidney is 0.72. IMPRESSION: 1.No hemodynamically significant plaque formation or flow-limiting stenosis is seen within either the left or right main renal arteries. 2. Mild left-sided hydronephrosis. Electronically signed by: Massimo Sun MD (08/09/2018 2:55 PM) [place] [id number]
--- NOTE | 2018-08-09 15:36 | NUR ---
NURSING NOTE DISCHARGE PT DISCHARGED TO HOME ACCOMPANIED BY AT 1535 VIA AMBULATION. WRITTEN AND VERBAL DISCHARGE INSTRUCTIONS GIVEN TO PT. SCRIPT FOR AMLODIPINE CALLED IN TO [facility]. PT INSTRUCTED TO FOLLOW UP WITH PCP AND CARDIOLOGY. NO COMPLICATIONS JULIEN AVALOS.
--- NOTE | 2018-09-07 12:08 | DS ---
DATE OF DISCHARGE: 08/09/2018 HISTORY OF PRESENT ILLNESS: The patient is a 73-year-old female patient who came to the Emergency Room as she developed weakness approximately 30 minutes into her usual 40 minutes' exercise program. She took her blood pressure after this program and noted that her pressure was down to 70s with serial testing. She also noted that she was covered in sweat, which is different from her usual because she normally does not sweat much at all during her exercises; however, she denied any chest pain, denied any palpitation, denied being very lightheaded. She saw her primary care physician who noted that her blood pressure was in the 90s that has improved to 110 prior to discharge and she came to the Emergency Room where she has had difficulty getting words out. Her primary care physician did not notice any change in this patient's speech pattern; however, her did note that she was slower to get words out and there was no slurring of speech. She denied any weakness in her arms or legs. The speech difficulty had also resolved. She was evaluated in the Emergency Room and apparently has had a CT scan of the head, which showed no intracranial abnormalities. Her first set of cardiac enzyme was less than 0.017. She was admitted to do 2 more sets of cardiac enzyme and to consult the cardiology perhaps also neurologist. She was seen by the bean picker machine operator and she had 3 sets of cardiac enzymes that ruled out myocardial infarction. She has had an echocardiogram done, which showed that her left ventricular systolic function is normal, ejection fraction is 70%. She has normal left ventricular segmental wall motion and transmitral Doppler flow pattern is grade 1 abnormal relaxation pattern. She has trace mitral regurgitation, trace to mild tricuspid regurgitation. Her pulmonary artery pressure was estimated at 21 mmHg. She was seen in consultation also. Her lab work on arrival showed that she was dehydrated. She was treated with IV antibiotics. She has had bilateral carotid Doppler study as well as renal artery duplex and no abnormality was detected, and therefore, the patient was discharged home. In fact, her blood pressure was high, and therefore, she was discharged to follow with her primary care physician. PHYSICAL EXAMINATION: GENERAL: When I examined her on the day of discharge, she looked well and was clearly in no apparent respiratory distress. VITAL SIGNS: Her heart rate was 70, blood pressure was 132/69, temperature was 97.9, respiratory rate was 18 and oxygen saturation was 96%. Her clinical exam is stable. LABORATORY DATA: Her lab work prior to discharge showed her serum sodium was 143, potassium 4.3, chloride 109, bicarbonate 28, anion gap of 6, BUN 16, creatinine 0.7, estimated GFR was 81 mL per minute. Her glucose was 87, calcium was 8.6. Total bilirubin, AST, ALT, alkaline phosphatase were normal. Total protein was 6.7, albumin 3.4. Her white cell count was 5700, hemoglobin 13, hematocrit 39, MCV 91, and platelet count 220,000. DISCHARGE MEDICATIONS: She was discharged home to continue on her Colace 200 mg twice a day, simvastatin 20 mg at bedtime, acetaminophen 650 mg at bedtime, calcium carbonate with vitamin D one tablet twice a day, cholecalciferol 1000 International Unit once a day, diphenhydramine 25 mg at bedtime, and PreserVision AREDS tablet 1 tablet once a day. FINAL DISCHARGE DIAGNOSES: 1. Near syncope. The patient was at least when she arrived dehydrated with disproportionately high BUN compared to creatinine. 2. Hypertension that is resolved. 3. Dyslipidemia. KEE MATTA MD DR: EZEQUIEL/mikayla JOB#: [id number] / [id number]
== END 2018-08-09 15:35 | disposition home or self-care (01) | DRG 641 ==
LOC: ER 11:28 → 1 SOUTH 13:59
PROVIDERS: ADMIT Internal Medicine; ATTEND Internal Medicine
DX: E86.0 Dehydration (principal); I95.9 Hypotension, unspecified; E78.00 Pure hypercholesterolemia, unspecified; E78.5 Hyperlipidemia, unspecified; K21.9 Gastro-esophageal reflux disease without esophagitis; K58.9 Irritable bowel syndrome, unspecified; Z82.49 Family history of ischemic heart disease and other diseases of the circulatory system; Z90.710 Acquired absence of both cervix and uterus; Z88.5 Allergy status to narcotic agent
CPT/HCPCS: 36415; 70450; 71045; 76770; 80053; 81001; 83735; 83880; 84443; 84484; 85025; 85610; 93005; 93306; 93880; J7040; J7030

== ENCOUNTER → 2018-08-17 | Outpatient (CLI) | payer MEDICARE, BC ==
[2018-08-09 13:08] VITALS: BP 165/84
[~2018-08-17] MED LIST changes: +ACET325T9 PO; +BIFI4CAP PO; +CALC-157 PO; +CHOL100013 PO; +DIPH50CA PO; +DOCU100C28 PO; +SIMV20TA3 PO; +VIT1TABL34 PO; +VITA1CAP PO
--- NOTE | 2018-08-17 13:21 | RAD ---
MR#: [id number] Date of Study: 08/17/2018 Ordering Physician: PAT LOERA, Referring Physician: TATUM OLIVER Tech: KRISTI Ch ARRT (R) (N) APPROVED REPORT Test Type: Exercise Stress Nurse/Tech: WILLIAM English Test Indications: near syncope Cardiac History: High cholesterol Medications: See Electronic Medical Record Medical History: See Electronic Medical Record Resting ECG: SR, NO ACUTE CHANGES Resting Heart Rate: 69 bpm Resting Blood Pressure: 199/83mmHg Pretest Chest Pain: None Nurse/Tech Notes Consent: The procedure was explained to the patient in lay terms. Informed consent was witnessed. Mor eout was entered into [email or web address]. History and Stress Test performed by KRISTI Ch ARRT (R) (N) Stress Symptoms Dyspnea,Fatigue POST EXERCISE Reason for Termination: Fatigue , Reached target heart rate Target HR: Yes Max HR: 144 bpm 116% of Maximum Predicted HR: 124 bpm Exercise duration: 7:54 min:sec, 3 Stage Exercise capacity: 10METs Max Blood Pressure: 198/60mmHg Blood Pressure response to exercise: Abnormal increase in blood pressure during stress. Chest Pain: No. Arrhythmia: No. ST Change: Yes. depression w/upsloping @ peak INTERPRETATION Stress EKG Conclusion: Baseline EKG showed sinus rhythm. No ischemic changes at peak stress. No arr hythmias. Imaging Protocol IMAGE PROTOCOL: Rest Tc-99m/stress Tc-99m 1 day Rest: Stress: Viability: Radiopharm.Tc99m PbkshbympPu88u Sestamibi Nkdl68xLv 34mCi Img Date 08/17/2018 08/17/2018 Inj-Img Wpzr51evs. 60min. Rest Admin Site:IV - Left AntecubitalAdministrator: KRISTI Ch ARRT (R)(N) Stress Admin Site: IV - Left AntecubitalAdministrator: KRISTI Ch ARRT (R)(N) STRESS DATA End Diast. Vol.49.0mlAv. Heart Rate79.0bpm LVEDV index BSA1.0mlCardiac Output0.1L/min End Syst. Vol.3.0mlCO Index BSA3.6L/min LVESV index BSA0.0mlMyocardial Mass95.0g Eject. Swacixbg08.0% Stress Rates Pk. Fill Rate4.51EDV/secLVtime Pk. Fill 140.29msec Pk. Empty Rate5.97ESV/secLVtime Pk. Piuej479.95msec 1/3 Pk. Fill2.38EDV/sec Stress Scores Regional WT0.00Summed WT0.00 Regional WM0.00Summed WM0.00 Study quality was good. Left Ventricular size was Normal at Rest and Stress. Lung uptake was . Left Ventricular ejection fraction is >80%. The rest and stress images show normal perfusion, normal contraction and thickening. LV Perf. Quant 17 Seg. SSS0.00 17 Seg. SRS2.00 17 Seg. SDS0.00 Stress Defect Extent (% LAD)0.00Rest Defect Extent (% LAD)5.60Rev. Defect Extent (% LAD)0.00 Stress Defect Extent (% LCX) 0.00Rest Defect Extent (% LCX)0.00Rev. Defect Extent (% LCX)0.00 Stress Defect Extent (% RCA)0.00Rest Defect Extent (% RCA)0.00Rev. Defect Extent (% RCA)0.00 Stress Defect Extent (% LUIS DANIEL)0.00Rest Defect Extent (% LUIS DANIEL)2.20Rev. Defect Extent (% LUIS DANIEL)0.00 Conclusion 1. Treadmill exercise cardioisotope stress test did not show any evidence of ischemia or infarct. 2. Normal left ventricular systolic function with ejection fraction calculated at >80%. 3. Low risk for cardiac events. Signed by : Pat Loera, Electronically Approved : 08/17/2018 13:21:37
== END | disposition home or self-care (01) ==
LOC: NM 07:58
PROVIDERS: ATTEND Internal Medicine Cardiovascular Disease
DX: R55 Syncope and collapse (principal); E78.00 Pure hypercholesterolemia, unspecified
CPT/HCPCS: 78452; 93017; A9500; 96375; 96376

== ENCOUNTER → 2018-08-29 | Outpatient (CLI) | payer MEDICARE, BC ==
[2018-08-09 13:08] VITALS: BP 165/84
[~2018-08-29] MED LIST changes: +FUROSEMIDE 40 MG/4 ML VIAL IVP ONE
--- NOTE | 2018-08-29 13:04 | RAD ---
Radionuclide renal scan with Lasix, 08/29/2018: HISTORY: Hydronephrosis Imaging was performed following IV injection of 11.0 mCi of technetium 99m MAG3. 40 mg of Lasix was administered IV approximately 20 minutes into the exam. The dynamic flow study demonstrates prompt symmetric perfusion of both kidneys. There is prompt uptake of the radionuclide by both kidneys with time to peak activity in both kidneys at approximately 2 minutes. There is good clearance of activity from the renal parenchyma and the renal collecting systems without evidence of significant obstruction. Normal bladder uptake is seen. IMPRESSION: Normal radionuclide renal scan. Electronically signed by: Domingo Lopez MD (08/29/2018 1:01 PM) [facility]
== END | disposition home or self-care (01) ==
LOC: NM 07:50
PROVIDERS: ATTEND Family Medicine
DX: N13.39 Other hydronephrosis (principal)
CPT/HCPCS: 78708; 96374; 96375; A9562; J1940

== ENCOUNTER → 2019-09-17 | Outpatient (CLI) | payer MEDICARE, BC ==
[~2019-09-17] MED LIST changes: +CEPH-264 PO; +CHOL400T36 PO; +CITA20TA6 PO; +CRAN250C PO; -FUROSEMIDE 40 MG/4 ML VIAL IVP ONE; +MELA5TAB20 PO; +SIMV20TA18 PO; -SIMV20TA3 PO; +VIT1CAPS12 PO; +VITA1TAB19 PO
--- NOTE | 2019-09-18 08:13 | RAD ---
Bilateral digital screening mammograms and tomosynthesis Reason for examination: Routine screening. Comparison is made to previous study dated July 14, 2017 and priors Routine CC and MLO digital views obtained. Interpretation was made with the benefit of CAD. The skin and nipples show no abnormalities. No abnormal axillary lymph nodes are seen. The breast parenchyma is heterogeneously dense. (Breast density: Category C.) There are no suspicious masses, suspicious calcifications or architectural distortion. Benign calcifications. Small intramammary lymph node of the left upper outer breast. Impression: Negative mammogram. Recommend routine screening. ?Your patient's mammogram demonstrates that she has dense breast tissue (breast density category C or D), which could hide abnormalities, and if she has other risk factors for breast cancer that have been identified, she might benefit from supplemental screening tests that may be suggested by you as her ordering physician. Dense breast tissue, in and of itself, is a relatively common condition. Therefore, this information is not provided to cause undue concern, but rather to raise your awareness and to promote discussion with your patient regarding the presence of other risk factors, in addition to dense breast tissue. Your patient's mammography results will be sent to her. BI-RAD Category 2: Benign. "Our facility is accredited by the [employer] Mammography Program." This patient's information has been entered into a reminder system for the patient to be notified with the results of her examination and a target date for the next mammogram. Electronically signed by: Jarod Bustamante MD (09/18/2019 8:09 AM) [id number]
== END | disposition home or self-care (01) ==
LOC: MAMMO 09:58
PROVIDERS: ATTEND Specialist
DX: Z12.31 Encounter for screening mammogram for malignant neoplasm of breast (principal)
CPT/HCPCS: 77063; 77067

== ENCOUNTER 2019-11-12 08:38 | Emergency (ER) | payer MEDICARE, BC ==
[~2019-11-12] VITALS: Ht 152.4 cm; Wt 52.3 kg
[~2019-11-12 08:38] MED LIST changes: -CEPH-264 PO; -CHOL400T36 PO; -CITA20TA6 PO; -CRAN250C PO; -MELA5TAB20 PO; -VIT1CAPS12 PO; -VITA1TAB19 PO
[2019-11-12] MEDS ORDERED: TETANUS AND DIPHTHERIA TOX/PF 0.5 ML VIAL. VAX IM ONE (09:00)
[2019-11-12] MEDS ORDERED: CEPHALEXIN 250 MG CAPSULE PO ONE (09:00)
--- NOTE | 2019-11-12 09:08 | RAD ---
Three views Left finger: Clinical History: Amputated tip of index finger. Technique: AP view of the hand, as well as lateral and oblique collimated views of the second finger were obtained. Comparison: None. Findings: There is amputation of the distal left index finger which includes the tip of the tuft. There is no radiopaque foreign body. The remaining visualized osseous structures appear normal. Impression: Amputation of the tip of the index finger includes the very tip of the tuft. Electronically signed by: Lukasz Jay III, MD (11/12/2019 9:05 AM) [id number]
--- NOTE | 2019-11-12 09:13 | PHYS DOC ---
Past History Past Medical History: Anxiety Past Surgical History: Hysterectomy Smoking: Non-smoker Alcohol Use: Rarely Drug Use: None General Adult EDM: Chief Complaint: FINGER INJURY HPI: HPI: Patient is a 74 year old female who presents for amputation of the very tip of her left index finger. She cut it with electric ena just prior to arrival. She was able to bring in the tip which is only 3 to 4 mm thick. There was injury to the nailbed as well. No other injuries reported. Tetanus is not up-to-date. Bleeding controlled prior to arrival. The nail is missing Review of Systems: Review of Systems: Constitutional: Denies fever or chills Eyes: Denies change in visual acuity HENT: Denies nasal congestion or sore throat Respiratory: Denies cough or shortness of breath Cardiovascular: Denies chest pain or edema GI: Denies abdominal pain, nausea, vomiting, bloody stools or diarrhea : Denies dysuria Musculoskeletal: Denies back pain or joint pain Integument: Denies rash Neurologic: Denies headache, focal weakness or sensory changes Endocrine: Denies polyuria or polydipsia Lymphatic: Denies swollen glands Psychiatric: Denies depression or anxiety Heart Score: Risk Factors: Risk Factors: DM, Current or recent (<one month) smoker, HTN, HLP, family history of CAD, obesity. Risk Scores: Score 0 - 3: 2.5% MACE over next 6 weeks - Discharge Home Score 4 - 6: 20.3% MACE over next 6 weeks - Admit for Clinical Observation Score 7 - 10: 72.7% MACE over next 6 weeks - Early Invasive Strategies Current Medications: Current Meds: Current Medications Medications (Trade) Dose Ordered Sig/Mingo Start Time Stop Time Status Last Admin Dose Admin Cephalexin HCl (Keflex) 500 mg 1X ONCE 11/12/19 09:00 11/12/19 09:01 DC Tetanus/ Diphtheria Toxoids Adsorbed (Tenivac Vial) 0.5 ml ONCE ONCE 11/12/19 09:00 11/12/19 09:01 DC Allergies: Allergies: Allergies Coded Allergies Type Severity Reaction Last Updated Verified No Known Drug Allergies 11/12/19 No Physical Exam: PE: Constitutional: Well developed, well nourished, mild acute distress, non-toxic appearance. [] HENT: Normocephalic, atraumatic, bilateral external ears normal, oropharynx moist, nose normal. [] Eyes: conjunctiva normal, no discharge. [] Neck: Normal range of motion, no tenderness, supple. [] Cardiovascular:Heart rate regular rhythm, no murmur [] Lungs & Thorax: Bilateral breath sounds clear to auscultation [] Abdomen: Bowel sounds normal, soft, no tenderness. [] Skin: Warm, dry, no erythema, no rash, opened finger laceration/avulsion of tip left index finger. [] Back: No tenderness. [] Extremities: tenderness left fingertip, no cyanosis, no clubbing, ROM intact, no edema. Slightly exposed bone to tip of left index finger [] Neurologic: Alert and oriented, normal motor function, normal sensory function, no focal deficits noted. [] Psychologic: Affect normal, judgement normal, mood normal. [] Current Patient Data: Vital Signs: Vital Signs Date Time Temp Pulse Resp B/P (MAP) Pulse Ox O2 Delivery O2 Flow Rate FiO2 11/12/19 08:40 98.1 83 16 192/83 (119) 96 Room Air EKG: EKG: [] Radiology/Procedures: Radiology/Procedures: [place] [address] IMAGING REPORT Signed PATIENT: MARIPOSA NARVAEZ ACCOUNT: [id number] : 1945 LOCATION: ER AGE: 74 SEX: F EXAM STATUS: REG ER ORD. PHYSICIAN: JOSEFINA COLIN DO REASON: amputated end of finger tip left hand PROCEDURE: FINGER(S) LEFT Three views Left finger: Clinical History: Amputated tip of index finger. Technique: AP view of the hand, as well as lateral and oblique collimated views of the second finger were obtained. Comparison: None. Findings: There is amputation of the distal left index finger which includes the tip of the tuft. There is no radiopaque foreign body. The remaining visualized osseous structures appear normal. Impression: Amputation of the tip of the index finger includes the very tip of the tuft. Electronically signed by: Terell Johnson III, MD (11/12/2019 9:05 AM) [id number] DICTATED AND SIGNED BY: TERELL JOHNSON III, MD DATE: 11/12/19 0905 CC: MINDI WATSON MD; JOSEFINA COLIN DO ~ [] Course & Med Decision Making: Course & Med Decision Making Pertinent Labs and Imaging studies reviewed. (See chart for details) [] Kulwant Disclaimer: Kulwant Disclaimer: This electronic medical record was generated, in whole or in part, using a voice recognition dictation system. 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 Dr. Guillen is electrical power station technician. Patient wanted know if there is any way we could save that tip and reattach. Complication is that there is exposed bone right at the skin surface 0920 Dr Guillen called to discuss case. In his opinion and I agree reattachment is not possible. If patient wishes to pursue plastic repair then he suggested we call [facility] to see hand surgeon. Otherwise he can see the patient the office and debride the wound and close the tip 0932 patient has decided to do follow-up locally rather than going to [facility]. Dr. Guillen will see the patient in the office in a couple of days later this week. AlumaFoam splint placed and nonstick dressing over the open avulsion. Patient neurovascularly intact before and after the splint was placed Departure Departure: Impression: Primary Impression: Traumatic amputation of tip of left index finger Qualified Codes: S68.111A - Complete traumatic metacarpophalangeal amputation of left index finger, initial encounter Disposition: 01 HOME/RESIDENCE PRIOR TO ADM Condition: STABLE Referrals: MINDI WATSON MD (PCP) Patient Instructions: Fingertip Injuries and Amputations Additional Instructions: Call and see the orthopedic surgeon right away this week for debridement and final closure wound, keep area clean and dry, take antibiotic as directed Scripts Cephalexin (KEFLEX) 500 Mg Capsule 1 CAP PO QID for fingertip injury for 10 Days, #40 CAP 0 Refills Prov: JOSEFINA COLIN DO 11/12/19 Justification of Admission: Justification of Admission: Justification of Admission Dx: N/A JOSEFINA COLIN DO Nov 12, 2019 09:12
[2019-11-12 09:28] VITALS: BP 170/83
[2019-11-12] MEDS ORDERED: CEPH-264 PO (09:36)
== END 2019-11-12 09:57 | disposition home or self-care (01) ==
LOC: ER 08:38
DX: S68.111A Complete traumatic metacarpophalangeal amputation of left index finger, initial encounter (principal); F41.9 Anxiety disorder, unspecified; Z90.710 Acquired absence of both cervix and uterus; W26.8XXA Contact with other sharp object(s), not elsewhere classified, initial encounter; Y93.89 Activity, other specified; Y92.89 Other specified places as the place of occurrence of the external cause; Y99.8 Other external cause status
CPT/HCPCS: 29130; 73140; 90471; 90714; 99283

== ENCOUNTER → 2020-02-15 | Outpatient (CLI) | payer MEDICARE, BC ==
[~2020-02-15] MED LIST changes: +CEPH-264 PO; +CHOL400T36 PO; +CITA20TA6 PO; +CRAN250C PO; +MELA5TAB20 PO; +VIT1CAPS12 PO; +VITA1TAB19 PO
== END ==
LOC: LAB 09:00
PROVIDERS: ATTEND Nurse Anesthetist, Certified Registered
DX: Z01.812 Encounter for preprocedural laboratory examination (principal); Z20.828 Contact with and (suspected) exposure to other viral communicable diseases; R19.7 Diarrhea, unspecified; Z86.010 Personal history of colon polyps
CPT/HCPCS: U0003-CS

== ENCOUNTER → 2020-02-19 | Day surgery (SDC) | payer MEDICARE, BC ==
[~2020-02-19] MED LIST changes: +ACETAMINOPHEN 325 MG TABLET PO PRN; +ALBUTEROL SULFATE 2.5 MG/3 ML NEBU. NEB PRN; +ATROPINE 0.5 MG/5 ML DISP.SYRIN. IV PRN; +IV RINGERS SOLUTION,LACTATED 1,000 ML IV SCH; +MIDAZOLAM HCL PF 2 MG/2 ML VIAL. IV PRN; +PHENOL ORAL SPRAY 177ML BOTTLE. MM PRN; +PROPOFOL 10,000 MCG/ML (20ML) VIAL IV ONE; +diphenhydrAMINE 50 MG/ML VIAL IV PRN
[2020-02-19 08:32] VITALS: BP 107/55
--- NOTE | 2020-02-22 15:09 | PATHOLOGY ---
[facility] Accession Number: [id number] . 01 Material submitted: . colon - BIOPSY RANDOM COLON . 01 Clinical history: . HX POLYPS, DIARRHEA . 02 Diagnosis: Colonic mucosa, random colon biopsies: - Suggestive of microscopic (lymphocytic) colitis. (JPM:[facility] 02/21/2020) [facility] [[email or web address] 02/21/2020 1006 Local . 02 Comment: Sections of the random colon biopsy reveal multiple segments of colonic mucosa showing focal mild chronic active colitis without crypt architectural distortion or collagen deposition. There is a patchy increase of intraepithelial lymphocytes. These changes are suggestive of microscopic (lymphocytic) colitis, however the diagnosis required clinico- pathologic correlation. (JPM:[facility] 02/21/2020) . 02 Electronically signed: . Mitchell Ferrara MD, Pathologist NPI- [id number] . 01 Gross description: . The specimen is received in formalin, labeled "Vicky Jose David, biopsy random colon". Received are multiple segments of pale garcia soft tissue ranging in size from 0.2 to 0.4 cm in maximum dimensions. The specimen is submitted entirely in cassette A1. ([facility]; 02/20/2020) QA/QA 02/20/2020 1450 Local . 02 Pathologist provided ICD-10: Z86.010, R19.7 . 02 CPT . 781412 Specimen Comment: A courtesy copy of this report has been sent to [phone] Specimen Comment: [id number] Specimen Comment: Report sent to / DR WATSON Performed at: [address], [place], [place] [id number] MD Gagan Lovelace MD Phone: [phone] Performed at: 02 [facility] [address] [place], [place] [id number] MD Mitchell Ferrara MD Phone: [phone]
== END | disposition home or self-care (01) ==
LOC: SURG 06:41
PROVIDERS: ATTEND Emergency Medicine
DX: R19.7 Diarrhea, unspecified (principal); K51.80 Other ulcerative colitis without complications; K63.89 Other specified diseases of intestine; F41.9 Anxiety disorder, unspecified; Z90.710 Acquired absence of both cervix and uterus; Z98.890 Other specified postprocedural states; Z79.899 Other long term (current) drug therapy
CPT/HCPCS: 45380; J2704; J7120

== ENCOUNTER → 2020-02-26 | Outpatient (CLI) | payer MEDICARE, BC ==
[2020-02-19 08:32] VITALS: BP 107/55
[~2020-02-26] MED LIST changes: -ACETAMINOPHEN 325 MG TABLET PO PRN; -ALBUTEROL SULFATE 2.5 MG/3 ML NEBU. NEB PRN; -ATROPINE 0.5 MG/5 ML DISP.SYRIN. IV PRN; -IV RINGERS SOLUTION,LACTATED 1,000 ML IV SCH; -MIDAZOLAM HCL PF 2 MG/2 ML VIAL. IV PRN; -PHENOL ORAL SPRAY 177ML BOTTLE. MM PRN; -PROPOFOL 10,000 MCG/ML (20ML) VIAL IV ONE; -diphenhydrAMINE 50 MG/ML VIAL IV PRN
--- NOTE | 2020-02-26 13:54 | CARD ---
MR#: [id number] Date of Study: 02/26/2020 Ordering Physician: PAT LOERA, Referring Physician: PAT LOERA Tech: Angela Blake RDCS APPROVED REPORT EXAM: Two-dimensional and M-mode echocardiogram with Doppler and color Doppler. Other Information Quality : Good INDICATION Syncope 2D DIMENSIONS RVDd2.4 (2.9-3.5cm)Left Atrium(2D)2.7 (1.6-4.0cm) IVSd0.9 (0.7-1.1cm)Aortic Root(2D)2.4 (2.0-3.7cm) LVDd4.0 (3.9-5.9cm)LVOT Diameter1.9 (1.8-2.4cm) PWd0.9 (0.7-1.1cm)LVDs2.4 (2.5-4.0cm) FS (%) 39.4 %SV48.4 ml LVEF(%)60.0 (>50%) Aortic Valve AoV Peak Maldonado.133.6cm/sAoV VTI27.0cm AO Peak GR.7.1mmHgLVOT Peak Maldonado.107.9cm/s LVOT VTI 27.02cmAO Mean GR.4mmHg CHARI (VMAX)2.62yn5OYS (VTI)2.83cm2 Mitral Valve MV E Xfiqvdqj82.4cm/sMV DECEL RCNN036zb MV A Rttbssem925.4cm/sE/A Ratio0.8 Tricuspid Valve TR P. Ijlcaknh919rq/sRAP TSNETQKU8osUo TR Peak Gr.04wwHdKKFR03raRt Pulmonary Vein S1 Lzuxtqjx56.5cm/sD2 Ueprorju37.9cm/s LEFT VENTRICLE The left ventricle is normal size. There is normal left ventricular wall thickness. The left ventricu lar systolic function is normal. The Ejection Fraction is 55-60%. There is normal LV segmental wall m otion. Transmitral Doppler flow pattern is Grade I-abnormal relaxation pattern. RIGHT VENTRICLE The right ventricle is normal size. The right ventricular systolic function is normal. ATRIA The left atrium size is normal. The right atrium size is normal. The interatrial septum is intact wit h no evidence for an atrial septal defect or patent foramen ovale as noted on 2-D or Doppler imaging. AORTIC VALVE The aortic valve is calcified but opens well. Doppler and Color Flow revealed no significant aortic r egurgitation. There is no significant aortic valvular stenosis. MITRAL VALVE The mitral valve is normal in structure and function. There is no evidence of mitral valve prolapse. There is no mitral valve stenosis. Doppler and Color Flow revealed no mitral valve regurgitation note d. TRICUSPID VALVE The tricuspid valve is normal in structure and function. Doppler and Color Flow revealed trace tricus pid regurgitation. The PA pressure was estimated at 23 mmHg. There is no tricuspid valve stenosis. PULMONIC VALVE The pulmonic valve is not well visualized. Doppler and Color Flow revealed no pulmonic valvular regur gitation. There is no pulmonic valvular stenosis. GREAT VESSELS The aortic root is normal in size. The ascending aorta is not well seen. The IVC is normal in size an d collapses >50% with inspiration. PERICARDIAL EFFUSION There is no evidence of significant pericardial effusion. Critical Notification Critical Value: No <Conclusion> The left ventricular systolic function is normal. The Ejection Fraction is 55-60%. There is normal LV segmental wall motion. Transmitral Doppler flow pattern is Grade I-abnormal relaxation pattern. Trace tricuspid regurgitation. The PA pressure was estimated at 23 mmHg. There is no evidence of significant pericardial effusion. Signed by : Pat Loera, Electronically Approved : 02/26/2020 13:53:51
== END ==
LOC: ECHO 07:46
PROVIDERS: ATTEND Internal Medicine Cardiovascular Disease
DX: R55 Syncope and collapse (principal)
CPT/HCPCS: 93306

== ENCOUNTER → 2021-05-07 | Outpatient (CLI) | payer MEDICARE, BC ==
[2020-02-19 08:32] VITALS: BP 107/55
[~2021-05-07] MED LIST changes: -DIPH50CA PO; +DIPH50CA16 PO
--- NOTE | 2021-05-07 12:54 | RAD ---
INDICATION: Screening for osteopenia/osteoporosis. Postmenopausal evaluation COMPARISON: 04/04/2018 TECHNIQUE: Bone densitometry was performed through the lumbar spine and proximal femur. IMPRESSION: Lumbar Spine: BMD: 0.87 T-Score: -2.6 Range: Osteoporotic. Decreased by 22 percent from baseline in 2002 and decreased by 4 percent from pr ior Proximal Femur: BMD: 0.7 T-Score: -1.9 Range: Osteopenic. Decreased by 16 percent from baseline and decreased by 5 percent from prior World Health Organization Criteria for Bone Density: T-Score: > -1.0: Normal Range < -1.0 to -2.5: Osteopenic Range < -2.5: Osteoporotic Range Electronically signed by: Shoaib Lui MD (05/07/2021 12:52 PM) [id number]
--- NOTE | 2021-05-07 13:42 | RAD ---
DATE: 05/07/2021 10:33 AM EXAM: MG BILAT SCREEN+JAVIER HISTORY: 75 year-old asymptomatic female presents for bilateral screening mammogram. No personal or family history of breast cancer. COMPARISON: 09/17/2019 and priors Bilateral CC and MLO views of the breasts were performed. Bilateral breast tomosynthesis was performe d in CC and MLO projections. This study was interpreted with the benefit of Computerized Aided Detection (CAD). FINDINGS: Breast Density: HETERO The breast parenchyma Is heterogeneously dense, which could reduce sensitivit y of mammography. Breast parenchyma level C No suspicious masses, microcalcifications or architectural distortion is present to suggest malignanc y in either breast. The visualized axillae are unremarkable. IMPRESSION: No mammographic evidence of malignancy. BI-RADS CATEGORY: 2 BENIGN FINDING(S) RECOMMENDED FOLLOW-UP: Annual screening mammography is recommended, unless clinically indicated soone r based on symptoms or change in physical exam. PQRS compliance statement: Patient information was entered into a reminder system with a target due d ate 05/07/2022 for the next mammogram. Mammography is a sensitive method for finding small breast cancers, but it does not detect them all a nd is not a substitute for careful clinical examination. A negative mammogram does not negate a clin ically suspicious finding and should not result in delay in biopsying a clinically suspicious abnorma lity. "Our facility is accredited by the [employer] Mammography Program." Electronically signed by: Alex Alvarado DO (05/07/2021 1:39 PM) [id number]
== END ==
LOC: MAMMO 09:43
PROVIDERS: ATTEND Specialist
DX: Z12.31 Encounter for screening mammogram for malignant neoplasm of breast (principal); M85.89 Other specified disorders of bone density and structure, multiple sites
CPT/HCPCS: 77063; 77067; 77080